=== PATIENT | female | born 1980 | race African-American/Black ===

== ENCOUNTER 2017-01-08 18:56 | Emergency (ER) | payer BC, MEDICAID ==
[~2017-01-08] VITALS: Ht 157.5 cm; Wt 56.2 kg
[2017-01-08 19:17] VITALS: BP 109/60
== END 2017-01-08 22:03 | disposition left against medical advice (07) ==
LOC: ER 19:01
DX: M54.2 Cervicalgia (principal); Z53.21 Procedure and treatment not carried out due to patient leaving prior to being seen by health care provider
CPT/HCPCS: 72040

== ENCOUNTER 2018-09-02 19:41 | Emergency (ER) | payer MEDICAID ==
[~2018-09-02] VITALS: Ht 157.5 cm; Wt 54.0 kg
[2018-09-02 21:09] LABS: Basophils # (auto) 0 uL; Basophils % (auto) 0.9 % (0.0-2.0); Eosinophils # (auto) 0 uL; Eosinophils % (auto) 0.8 % (0.0-7.0); Hemoglobin 8.4 g/dL (12.2-16.2); Lymphocytes # (auto) 1.4 uL; Lymphocytes % (auto) 31.8 % (10.0-50.0); Mean Corpuscular Hemoglobin 19.5 pg (28.0-32.0); Mean Corpuscular Hgb Conc. 29.8 g/dL (32.0-36.0); Mean Corpuscular Volume 65.3 fL (80.0-100.0); Monocytes # (auto) 0.5 uL; Monocytes % (auto) 10.1 % (0.0-12.0); Neutrophils # (auto) 2.5 uL; Neutrophils % (auto) 56.4 % (37.0-80.0); Nucleated Red Blood Cells % 0.1 %; Platelet Count (auto) 322 10^3/uL (140-450); Red Blood Cells 4.29 10^6/uL (4.0-5.20); Red Cell Distribution Width 17.8 % (11.8-14.3); White Blood Cell 4.5 10^3/uL (4.4-10.8)
[2018-09-02] MEDS: SODIUM CHLORIDE 0.9% 1,000 ML IV ONE (21:21)
[2018-09-02 21:23] LABS: Albumin 4.1 g/dL (3.4-5.0); BUN/Creatinine Ratio 10.3; Calcium 9.1 mg/dL (8.5-10.1)
[2018-09-02 21:26] LABS: Bilirubin, Total 0.2 mg/dL (0.2-1.0); Total Protein 7.6 g/dL (6.4-8.2)
[2018-09-02 21:41] LABS: Urine Bacteria FEW /hpf (None Seen); Urine Blood Negative /uL (Negative); Urine Specific Gravity 1.004 (1.001-1.035); Urine WBC 1 /hpf (0 - 5)
[2018-09-02 22:07] LABS: Hemoglobin 7.2 g/dL (12.2-16.2)
[2018-09-02 22:08] LABS: Hematocrit 24.3 % (36.0-46.0)
[2018-09-02 22:29] LABS: INR 0.95 (0.9-1.15); Partial Thromboplastin Time 24.3 sec (23.78-33.04); Prothrombin Time 10.2 sec (9.27-12.13)
[2018-09-02 23:13] VITALS: BP 99/54
== END 2018-09-03 00:30 | disposition home or self-care (01) ==
LOC: ER 19:41
DX: D64.9 Anemia, unspecified (principal); R53.1 Weakness
CPT/HCPCS: 36415; 80053; 81001; 83021; 83540; 83550; 84702; 85014; 85018; 85025; 85045; 85610; 85660; 85730; 86850; 86900; 86901; 94761